=== PATIENT | female | born 1985 | race Caucasian/White ===

== ENCOUNTER 2022-01-20 06:13 | Inpatient (IN) ==
[2022-01-20] MEDS ORDERED: LR 1,000 ML IV 1,000 ML IV ONE (06:36)
[2022-01-20] MEDS ORDERED: D5 1/2 NS 1,000 ML 1,000 ML IV SCH (06:37)
[2022-01-20] MEDS ORDERED: ANCEF VIAL 1 GRAM IVP ONE (06:37)
[2022-01-20] MEDS ORDERED: NS 100 ML IV 100 ML ONE (06:37)
[2022-01-20] MEDS ORDERED: DILAUDID INJ ONE (06:59)
[2022-01-20] MEDS ORDERED: MARCAINE SPINAL ONE (06:59)
[2022-01-20] MEDS ORDERED: XYLOCAINE-MPF 2% ONE (07:12)
[2022-01-20] MEDS ORDERED: PEPCID 20 MG VIAL ONE (07:16)
[2022-01-20] MEDS ORDERED: ZOFRAN INJ 4 MG VIAL ONE (07:16)
[2022-01-20] MEDS ORDERED: D5 1/2 NS 1,000 mL + PITOCIN 20 UNITS/L IV 20 UNITS/1,000 ML BAG IV ONE (07:46)
[2022-01-20] MEDS ORDERED: TORADOL 30 MG VIAL ONE (08:47)
[2022-01-20] MEDS ORDERED: BENADRYL INJ 50 MG VIAL IVP PRN ×2 (09:20→10:05)
[2022-01-20] MEDS ORDERED: PHENERGAN INJ 25 MG IM PRN (09:20)
[2022-01-20] MEDS ORDERED: BARHEMSYS INJ IVP PRN (09:20)
[2022-01-20] MEDS ORDERED: ZOFRAN INJ 4 MG VIAL IVP PRN ×2 (09:20→10:05)
[2022-01-20] MEDS ORDERED: ADACEL or BOOSTRIX TDaP VACCINE IM ONE ×2 (10:05→17:02)
[2022-01-20] MEDS ORDERED: MYLICON TAB 80 MG CHEW PO PRN (10:05)
[2022-01-20] MEDS ORDERED: D5 1/2 NS 1,000 ML 1,000 ML with PITOCIN 20 UNITS IV SCH ×2 (10:05)
[2022-01-20] MEDS ORDERED: PERCOCET TAB 5/325 MG PO PRN (10:05)
[2022-01-20] MEDS ORDERED: NARCAN INJ IVP PRN (10:05)
[2022-01-20] MEDS ORDERED: REGLAN INJ 10 MG VIAL IVP PRN (10:05)
[2022-01-20] MEDS: BUSPAR PO SCH ×2 (14:34→21:37)
[2022-01-20] MEDS: NICOTINE PATCH TD SCH (14:35)
[2022-01-20] MEDS: NORMODYNE TAB 100 MG PO SCH (21:36)
[2022-01-20] MEDS: TORADOL 30 MG VIAL IVP PRN (21:37)
[2022-01-21 05:19] LABS: HEMATOCRIT 26.9 % (36.0-47.0); HEMOGLOBIN 9.3 g/dL (12.0-16.0)
[2022-01-21] MEDS: BUSPAR PO SCH ×3 (05:22→22:03)
[2022-01-21] MEDS: TORADOL 30 MG VIAL IVP PRN (05:22)
[2022-01-21] MEDS ORDERED: MOTRIN TAB 800 MG PO PRN (07:16)
[2022-01-21] MEDS: NICOTINE PATCH TD SCH (09:00)
[2022-01-21] MEDS: COLACE CAP 100 MG PO SCH ×2 (09:00→20:14)
[2022-01-21] MEDS: NORMODYNE TAB 100 MG PO SCH ×2 (09:01→20:14)
[2022-01-21] MEDS: PRENATAL PLUS PO SCH (09:02)
[2022-01-21] MEDS: PROTONIX TAB 40 MG PO SCH (09:02)
[2022-01-21] MEDS: PERCOCET TAB 5/325 MG PO PRN ×3 (10:45→20:14)
[2022-01-21] MEDS: BACTROBAN TOPICAL OINT TOP SCH ×2 (14:32→22:03)
[2022-01-21] MEDS: FERROUS GLUCONATE PO SCH (17:00)
[2022-01-22] MEDS: PERCOCET TAB 5/325 MG PO PRN ×2 (01:59→07:15)
[2022-01-22] MEDS: BACTROBAN TOPICAL OINT TOP SCH (05:33)
[2022-01-22] MEDS: BUSPAR PO SCH (05:33)
[2022-01-22] MEDS: FERROUS GLUCONATE PO SCH (07:01)
[2022-01-22 08:00] VITALS: BP 132/83
[2022-01-22] MEDS: COLACE CAP 100 MG PO SCH (09:02)
[2022-01-22] MEDS: PRENATAL PLUS PO SCH (09:02)
[2022-01-22] MEDS: NICOTINE PATCH TD SCH (09:03)
[2022-01-22] MEDS: PROTONIX TAB 40 MG PO SCH (09:03)
[2022-01-22] MEDS: NORMODYNE TAB 100 MG PO SCH (09:03)
== END 2022-01-22 11:40 | disposition home or self-care (01) | DRG 784 ==
LOC: LD 06:13 → MED/SURG 09:45
PROVIDERS: ADMIT Specialist; ATTEND Specialist